=== PATIENT | female | born 1960 | race Two or more races ===

== ENCOUNTER 2017-10-11 02:56 | Emergency (ER) | payer SELFPAY ==
[~2017-10-11] VITALS: Ht 170.2 cm; Wt 62.6 kg
[2017-10-11 03:12] VITALS: BP 124/79
--- NOTE | 2017-10-11 03:45 | NUR ---
pt refusing ct. dr lehman notified
--- NOTE | 2017-10-11 03:53 | NUR ---
Patient eloped from facility. ER MD notified.
== END 2017-10-11 04:03 | disposition home or self-care (01) ==
LOC: ER 02:59
DX: S00.511A Abrasion of lip, initial encounter (principal); R51 Headache; Z90.89 Acquired absence of other organs; V00.131A Fall from skateboard, initial encounter; Y93.I9 Activity, other involving external motion; Y92.89 Other specified places as the place of occurrence of the external cause; Y99.8 Other external cause status
CPT/HCPCS: 99281; Z7610; Z7502